=== PATIENT | male | born 2000 | race Caucasian/White ===

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

== ENCOUNTER 2022-01-25 09:59 | Emergency (ER) | payer OTHER, SELFPAY ==
[2022-01-25 10:34] VITALS: BP 128/75; PULSE 69; RESP 16; TEMP 36.4; O2SAT 99; BMI 22.8
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
[2022-01-25] MEDS: KETOROLAC 30 MG/ML VIAL IM (11:08)
[2022-01-25 11:25] VITALS: PULSE 51; RESP 16; O2SAT 99
[2022-01-25 11:30] VITALS: PULSE 71; RESP 24; O2SAT 98
[2022-01-25 11:54] VITALS: BP 139/109; PULSE 60; RESP 16; O2SAT 99
== END 2022-01-25 12:05 | disposition home or self-care (01) ==
PROVIDERS: Emergency Provider Emergency Medicine
DX: S20.212A Contusion of left front wall of thorax, initial encounter (principal); R07.89 Other chest pain; M25.512 Pain in left shoulder; V89.2XXA Person injured in unspecified motor-vehicle accident, traffic, initial encounter
CPT/HCPCS: 71046; 73000; 73030; 96372; 99283; J1885